=== PATIENT | male | born 1955 | race Caucasian/White ===

== ENCOUNTER 2021-11-08 08:15 | Day surgery (SDC) | payer MEDICARE ==
[~2021-11-08] VITALS: Ht 185.4 cm; Wt 104.1 kg
--- NOTE | ~2021-11-08 | EKG ---
[facility] [address] [facility] [place], [place] [address] Draft EKG completed, results pending confirmation PATIENT NAME: SHARITA OLSONBRENNA VELASCO Electrocardiogram DATE OF : 53 PHYSICIAN: PRELIMINARY REPORT #: [id number] REPORT IS CONFIDENTIAL AND NOT TO BE RELEASED WITHOUT AUTHORIZATION
--- NOTE | ~2021-11-08 | OR ---
[facility] [address] [place], [place] [address] Draft DATE OF OPERATION: 11/08/2021 SURGEON: Elyssa Fuchs MD PREOPERATIVE DIAGNOSIS: Displaced second metatarsal fracture, left foot. POSTOPERATIVE DIAGNOSIS: Displaced second metatarsal fracture, left foot. PROCEDURE PERFORMED: Open reduction and internal fixation of left second metatarsal. ANESTHESIA: MAC. STOCK MANAGER: ANDREW Hawkins. Page was present, critical for all portions of procedure. TIME OF TOURNIQUET: 44 minutes. IMPLANTS: Damaris 2.5 mm straight plate with 7 screws. BRIEF HISTORY: Anand is a 66-year-old gentleman who dropped a log on his foot fracturing second metatarsal. He continued to walk on it and he displaced it substantially. Risks and benefits of operative treatment were discussed with him. He elected to proceed. Once consent was obtained, he was taken to the operating room. After adequate anesthesia, the leg was prepped and draped in a standard sterile fashion up to a well-padded proximal thigh tourniquet. The leg was exsanguinated using Esmarch bandage. Tourniquet inflated to 250 mmHg. A 2.5 inch dorsal incision was made just lateral to the second metatarsal. This was carried through skin and subcutaneous tissue. The periosteum was incised longitudinally along the anterolateral aspect of the metatarsal. This was then elevated and debris was cleaned from the fracture site using a [place] elevator, we were able to reduce the fracture and hold it and a single 2.5 screw was placed obliquely across the fracture technique. Once this was accomplished and the seven hole plate was centered over the fracture dorsal laterally. Two screws PATIENT NAME: ANAND FUCHS OPERATIVE REPORT DATE OF : 53 REPORT #: [id number] PHYSICIAN: ELYSSA FUCHS MD PCP: ULICES DAVENPORT REPORT IS CONFIDENTIAL AND NOT TO BE RELEASED WITHOUT AUTHORIZATION [facility] [address] [place], [place] [address] Draft were placed in the center portion and alignment was checked and found to be satisfactory. The remaining screw holes were drilled and appropriate length screws were placed. Final radiographs showed anatomic reduction with central placement of the plate and screw lengths being good. The wound was copiously irrigated with normal saline, closed with two-0 nylon and dressed with Allevyn, ABD and John wrap. He was placed back into his fracture boot. He tolerated the procedure well. All sponge, needle, and instrument counts were correct. Elyssa Fuchs MD BA/ANNA /[id number] Copies: ~ PATIENT NAME: ANAND FUCHS ROD OPERATIVE REPORT DATE OF : 53 REPORT #: [id number] PHYSICIAN: ELYSSA FUCHS MD PCP: ULICES DAVENPORT REPORT IS CONFIDENTIAL AND NOT TO BE RELEASED WITHOUT AUTHORIZATION
[~2021-11-08 08:15] MED LIST: ADULT ASPIRIN81 MG PO; ALEVE220 MG PO; ATORVASTATIN CA40 MG PO; CARVEDILOL6.25 MG PO; CELECOXIB200 MG PO; CIALIS5 MG PO; CLOPIDOGREL75 MG PO; GABAPENTIN600 MG PO; HYDROCODON-ACE1 EA11 PO; IRON159 MG PO; IRON325 M1 PO; LOSARTAN POTASS25 MG PO; LOSARTAN POTASS50 MG PO; MEN'S MULTIVIT1 EAC1 PO; NORVASC10 MG PO; OMEPRAZOLE20 MG PO; OXYCODONE HCL5 MG PO; POLYETHYLENE GL17 GM PO; PROTONIX20 MG PO; SENNA LAX8.6 MG PO
[2021-11-08] MEDS ORDERED: HYDROCODON-ACE1 EA10 PO (12:04)
[2021-11-08] MEDS ORDERED: CEFPROZIL500 MG PO (12:05)
--- NOTE | 2021-11-08 12:14 | NUR ---
11/08/21 1214 [place] 1208-PT TO PACU IN SF POSITION. EYES CLOSED. PT RESPONDS TO VERBAL AND TACTILE STIMULI. OPENS EYES AND FOLLOWS COMMANDS. PT DENIES PAIN AND FALLS BACK TO SLEEP WITHOUT RN STIMULI. BREATHING EASY AND UNLABORED. SPO2 >95% ON 6 L O2 VIA SIMPLE MASK.
--- NOTE | 2021-11-08 13:00 | NUR ---
PT RETURNED TO ROOM WITH FAMILY AT BEDSIDE. FOOD ORDERED AND PT SIPPING SODA. VSS. PLAN OF CARE DISCUSSED AND CALL LIGHT WITHIN REACH.
--- NOTE | 2021-11-08 14:11 | NUR ---
1335 PT UP TO BATHROOM AND IV SALINE LOCKED. PT USING WALKING, BLEEDING NOTED FROM FRONT OF BOOT WHILE IN THE HALLWAY. PT RETUREND TO BED AND URINAL GIVEN. PT VOIDED. BOOT REMOVED AND PT TOES AND BOOT CLEANED. 1350 MD CALLED AND UPDATED. NEW ORDERS RECEIVED FOR DRESSING CHANGE. ABD APPLIED ON TOP IF ALLYVIN AND NEW DON WRAP PLACED AROUND FOOT. BOOT DRY AND PLACED ON FOOT. PT EATING LUNCH AND DENIES CONCERNS. SIGNIFICANT OTHER AT BEDSIDE AND CONERNED ABOUT AMBULATION OF PT AT HOME, DC PLAN DISCUSSED. 1400 VSS. PT DENIES PAIN AND NAUSEA. CALL LIGHT WITHIN REACH.
--- NOTE | 2021-11-08 14:55 | NUR ---
[id number] PT UP TO BATHROOM AND PT USED WALKER. PT STEADY ON HIS FEET ANED EDUCATION GIVEN ON WALKER USE. DC INSTRUCTIONS GIVEN AND PT VERBALIZED UNDERSTANDING ABOUT RX AT PHARMACY. PT GOING TO GET WALKER AT PHARMACY. PT DRESSED HIMSELF WITH SIGNIFICANT OTHER. ALL QUESTIONS ANSWERED. PT DC VIA .
== END 2021-11-08 14:55 | disposition home or self-care (01) ==
LOC: DS 08:15
PROVIDERS: ATTEND Specialist
PROC: 0QSP04Z Reposition Left Metatarsal with Internal Fixation Device, Open Approach (ICD-10-PCS; principal; 2021-11-08 13:10)
DX: S92.322A Displaced fracture of second metatarsal bone, left foot, initial encounter for closed fracture (principal); G89.18 Other acute postprocedural pain; I25.2 Old myocardial infarction; I25.10 Atherosclerotic heart disease of native coronary artery without angina pectoris; K21.9 Gastro-esophageal reflux disease without esophagitis; M19.90 Unspecified osteoarthritis, unspecified site; Z88.5 Allergy status to narcotic agent; W20.8XXA Other cause of strike by thrown, projected or falling object, initial encounter
CPT/HCPCS: 73620; 93005; 93010; J0690; J1100; J2001; J2250; J2704; J7121

== ENCOUNTER 2024-11-15 06:20 | Day surgery (SDC) | payer MEDICARE ==
[~2024-11-15] VITALS: Ht 182.9 cm; Wt 100.0 kg
[~2024-11-15 06:20] MED LIST changes: +CANDICIDAL CAP1 EACH; +CANDICIDAL CAP1 EACH PO; +CEFPROZIL500 MG PO; +HYDROCODON-ACE1 EA10 PO; +LACTATED RINGER'S 1,000 ML IV SCH
[2024-11-15 06:43] VITALS: BP 122/76
[2024-11-15] MEDS ORDERED: CEFAZOLIN SODIUM 2 GM/20 ML SYR IV SCH (07:00)
[2024-11-15] MEDS ORDERED: IBLOOD GLUCOSE TEST STRIP 1 EA TEST VI PRN ×2 (07:00→09:00)
[2024-11-15] MEDS ORDERED: LIDOCAINE HCL 1% 5 ML SDV INJ ONE (07:00)
[2024-11-15] MEDS ORDERED: fentaNYL citrate 100 MCG/2 ML VIAL ONE (07:54)
[2024-11-15] MEDS ORDERED: ondansetron HCL 4 MG/2 ML VIAL ONE (07:54)
[2024-11-15] MEDS ORDERED: propofoL 200 MG/20 ML VIAL ONE (07:54)
[2024-11-15] MEDS ORDERED: LIDOCAINE HCL 2% 5 ML SDV ONE (07:54)
[2024-11-15] MEDS ORDERED: HYDROCODONE/ACETA 5/325 TAB PO PRN (08:15)
[2024-11-15] MEDS ORDERED: ACETAMINOPHEN 1,000 MG/100 ML VIAL ONE (08:39)
[2024-11-15] MEDS ORDERED: KETOROLAC TROMETHAMINE 30 MG/ML VIAL ONE (08:50)
[2024-11-15] MEDS ORDERED: fentaNYL citrate 50 MCG/ML SDV IV PRN (09:00)
[2024-11-15] MEDS ORDERED: HYDROmorphone HCL 1 MG/ML SYR IV PRN (09:00)
[2024-11-15] MEDS ORDERED: ondansetron HCL 4 MG/2 ML VIAL IV PRN (09:00)
[2024-11-15] MEDS ORDERED: PROCHLORPERAZINE EDISYLATE 10 MG/2 ML VIAL IV PRN (09:00)
[2024-11-15] MEDS ORDERED: droPERidol 5 MG/2 ML VIAL IV PRN (09:00)
[2024-11-15] MEDS ORDERED: NALOXONE HCL 0.4 MG SYR IV PRN (09:00)
[2024-11-15] MEDS ORDERED: LACTATED RINGER'S 1,000 ML IV ONE (09:07)
[2024-11-15] MEDS ORDERED: HYDROCODON-ACE1 EA10 PO (09:17)
--- NOTE | 2024-11-15 09:23 | NUR ---
11/15/24 0923 Citlaly Fuchs PT TO PACU SLEEPY RESPONDS TO VERBAL STIMULI. DENIES PAIN AND NAUSEA.
[2024-11-15 09:40] VITALS: BP 138/70
--- NOTE | 2024-11-15 09:51 | NUR ---
7484 PT ARRIVED TO DAY SURGERY RM 5 VIA STREACHER FROM PACU. PT IS AWAKE AND ORIENTED. PT SITTING UPRIGHT IN BED SIPPING ON WATER. PT REPORTS DULL ACHE IN LEFT FOOT REPORTS 5/10 PAIN. PT EATING CRACKERS AND JELLO BEFORE PAIN PILL TO BE GIVEN. PT REPORTS NO NAUSEA AT THIS TIME. VITALS TAKEN. IV ASSESSED. PT BED LOW AND LOCKED, AND CALL LIGHT WITHIN REACH. INFORMED PT THAT ONE SCREW WAS REMOVED, BUT THE PLATE AND OTHER 5 SCREWS WERE LEFT IN DUE TO THEY WERE UNABLE TO GET THEM OUT. 8177 CALLED PT AND INFORMED THAT PT IS BACK IN DS. STATES SHE WILL FINISH HER GROCERY SHOPPING AND THEN BE BACK.
--- NOTE | 2024-11-15 09:55 | NUR ---
0955 SPOKE WITH PACU AFTER RECIVING 4 SCREWS BACK FOR PATIENT. 4 SCREWS REMOVED. UPDATED PT.
--- NOTE | 2024-11-15 10:26 | OR ---
[facility] [address] [facility] [place], [place] [address] Signed DATE OF OPERATION: 11/15/2024 SURGEON: Elyssa Fuchs MD PREOPERATIVE DIAGNOSIS: Painful hardware, left foot. POSTOPERATIVE DIAGNOSIS: Painful hardware, left foot. PROCEDURE PERFORMED: Partial removal of hardware, left foot surgeon. RIPSAW MATCHER: Page Dickinson PA-C. Page was present and critical for all portions of procedure. ANESTHESIA: General. BLOOD LOSS: None. TOURNIQUET TIME: 35 minutes. BRIEF HISTORY: Anand is a 69-year-old gentleman, who had a displaced metatarsal fracture and underwent open reduction and internal fixation with unremarkable healing. He presented with pain in the forefoot and we discussed removal of the hardware, particularly the prominent screw. The risks and benefits of this were discussed with him. He elected to proceed. DESCRIPTION OF PROCEDURE: Once consent was obtained, he was taken to the operating room. After adequate anesthesia, he was placed on operating table. All downside pressure points were well padded. A well-padded proximal leg tourniquet was placed and the leg was prepped and draped in a standard sterile fashion. The leg was exsanguinated using Esmarch bandage and tourniquet inflated to 250 mmHg. Prior incision was incised longitudinally and careful dissection was undertaken down through the subcutaneous tissue. The extensor tendons were retracted and protected. The hardware was easily located and was cleared Electronically Signed By: ELYSSA FUCHS MD 11/15/24 1026 PATIENT NAME: ANAND FUCHS OPERATIVE REPORT DATE OF : 53 REPORT #: [id number] PHYSICIAN: ELYSSA FUCHS MD PCP: ULICES DAVENPORT REPORT IS CONFIDENTIAL AND NOT TO BE RELEASED WITHOUT AUTHORIZATION [facility] [address] [place], [place] [address] Signed of all soft tissue including the screw heads. The interfragmentary screw, which was prominent was removed with no difficulty. The screws for the plate were then removed. Two screws distally and one screw proximally were removed successfully. With the next screw, the screwdriver broke and left a piece of the head in the screw head. The remaining screwdriver also broke and we were unable to remove any further screws. At that point, it was felt that it was not in his best interest to use a metal cutting bit to remove three screw heads in the plate as they were very low-profile. I elected to go ahead and leave the remainder of the plate and the three screws. The wound was copiously irrigated with normal saline, closed in layers with 3-0 Stratafix and sealed with LiquiBand. The wound was dressed with Allevyn and an John wrap. He tolerated the procedure well. All sponge, needle, and instrument counts were correct. Elyssa Fuchs MD BA/ANNA /[id number] Copies: ~ Electronically Signed By: ELYSSA FUCHS MD 11/15/24 1026 PATIENT NAME: FUCHSANAND OPERATIVE REPORT DATE OF : 53 REPORT #: [id number] PHYSICIAN: ELYSSA FUCHS MD PCP: ULICES DAVENPORT REPORT IS CONFIDENTIAL AND NOT TO BE RELEASED WITHOUT AUTHORIZATION
[2024-11-15 10:48] VITALS: BP 126/71
--- NOTE | 2024-11-15 11:02 | NUR ---
1040 HOURLY ROUNDING DONE WITH PT, VITALS TAKEN. IV ASSESSED. PT REPORTS TOLERABLE 4/10 PAIN AT THIS TIME. IN ROOM. PT REPORTS NO NEED TO URINATE YET. PT TOLERATING PO WATER AND SNACKS. PT HAS ICE ON SURGICAL SITE AND LEG IS ELEVATED. PT BED LOW AND LOCKED AND CALL LIGHT WIHTIN REACH. PT WILL USE CALL LIGHT WHEN PT FEELS THE NEED TO URINATE. DISCHARGE INFORMATION GONE OVER WITH PT AND , NO QUESTIONS AT THIS TIME. PT HAS DISCHARGE PACKET.
[2024-11-15] MEDS ORDERED: SEVOFLURANE 250 ML BTL INH ONE (11:59)
--- NOTE | 2024-11-15 12:33 | NUR ---
1120 PT ABLE TO AMBULATE TO BATHROOM AND VOID 100 MLS OF CLEAR YELLOW URINE. PT ABLE TO AMBULATE BACK TO ROOM. PT GETTING DRESSED WITH 'S ASSISTANCE. 1139 IV DISCONTINUED FOR DISCHARGE. COBAN AND GAUZE APPLIED, PT INFORMED TO REMOVE IN 10-15 MINTUES. PT DISCHARGED FROM DAY SURGERY VIA WHEELCHAIR TO THE FRONT OF THE HOSPITAL TO PT'S 'S CAR. PT ABLE TO AMBULATE TO CAR. PT HAS DISCHARGE PAPERWORK IN HAND.
== END 2024-11-15 11:39 | disposition home or self-care (01) ==
LOC: DS 06:20
PROVIDERS: ATTEND Specialist
PROC: 0QPP04Z Removal of Internal Fixation Device from Left Metatarsal, Open Approach (ICD-10-PCS; principal; 2024-11-15 08:00)
DX: T84.84XA Pain due to internal orthopedic prosthetic devices, implants and grafts, initial encounter (principal); K21.9 Gastro-esophageal reflux disease without esophagitis; I10 Essential (primary) hypertension; M19.90 Unspecified osteoarthritis, unspecified site; I25.2 Old myocardial infarction; Z79.02 Long term (current) use of antithrombotics/antiplatelets; Z79.82 Long term (current) use of aspirin; Z79.899 Other long term (current) drug therapy; Z88.5 Allergy status to narcotic agent; Z95.5 Presence of coronary angioplasty implant and graft; Y79.3 Surgical instruments, materials and orthopedic devices (including sutures) associated with adverse incidents
CPT/HCPCS: 01480; J0131; J0690; J1885; J2003; J2405; J2704; J3010; J7121